=== PATIENT | male | born 1970 | race Caucasian/White ===

== ENCOUNTER 2016-06-29 22:05 | Observation (INO) | payer BC ==
[~2016-06-29] VITALS: Ht 177.8 cm; Wt 113.6 kg
[~2016-06-29 22:05] MED LIST: HYDROCODON-ACE1 EAC7 PO; NAPROSYN250 MG PO
[2016-06-30 00:21] LABS: HEMATOCRIT 47.3 % (38.0-50.0); MCH 29.4 PG (29.0-34.0); MCHC 33.8 G/DL (30.0-36.0); MCV 86.8 FL (86-99); PLATELET COUNT 252 K/uL (156-360); RBC DIS.WIDTH-SD 40.6 % (39-53); RED BLOOD COUNT 5.45 M/uL (4.00-5.50)
[2016-06-30 00:31] LABS: CHLORIDE 105 mEq/L (99-109); POTASSIUM 4.5 mEq/L (3.7-5.4); SODIUM 138 mEq/L (136-147)
[2016-06-30 00:33] LABS: GLUCOSE 86 mg/dL (70-99)
[2016-06-30 00:34] LABS: ANION GAP 10 MEQ/L (2-14)
[2016-06-30 00:37] LABS: GFR ESTIMATE (CALCULATED) > 59 mL/min/
[2016-06-30 00:38] LABS: UREA NITROGEN (BUN) 21 mg/dL (9-23)
[2016-06-30 00:45] LABS: TROP-I INTERPRETATION NEGATIVE; TROPONIN-I < 0.01 ng/mL (0.0-0.30)
[2016-06-30 00:52] LABS: D-DIMER ELISA 0.51 mg/L FEU (< 0.57)
[2016-06-30 07:26] VITALS: BP 127/65
[2016-06-30 07:38] LABS: TROP-I INTERPRETATION NEGATIVE; TROPONIN-I < 0.01 ng/mL (0.0-0.30)
[2016-06-30 13:12] LABS: TROP-I INTERPRETATION NEGATIVE; TROPONIN-I < 0.01 ng/mL (0.0-0.30)
[2016-06-30 15:43] VITALS: BP 138/77
[2016-06-30] MEDS ORDERED: LIPITOR20 MG PO (15:55)
[2016-06-30] MEDS ORDERED: ASPIR-LOW81 MG PO (15:55)
[2016-06-30] MEDS ORDERED: NICOTINE PATCH1 EAC2 TD (15:55)
[2016-06-30] MEDS ORDERED: TYLENOL REGULA325 MG PO (15:55)
== END 2016-06-30 17:15 | disposition home or self-care (01) ==
LOC: EME 22:05 → EDOF 06-30 03:36 → 4SOUTH 06-30 07:24
PROVIDERS: Emergency Medicine; Physician Assistant
DX: R07.9 Chest pain, unspecified (principal); E66.9 Obesity, unspecified; Z68.35 Body mass index [BMI] 35.0-35.9, adult; F17.210 Nicotine dependence, cigarettes, uncomplicated; E78.5 Hyperlipidemia, unspecified; Z82.49 Family history of ischemic heart disease and other diseases of the circulatory system; Z88.0 Allergy status to penicillin
CPT/HCPCS: 71020; 71275; 80048; 81003; 84484; 85027; 85379; 93005; 94640; 99281; 99285; G0378; J1650; J1885; J2270; J2405; J2930; J7030